=== PATIENT | female | born 1980 | race Caucasian/White ===

== ENCOUNTER 2017-02-13 15:08 | Emergency (ER) | payer BC ==
[~2017-02-13] VITALS: Ht 165.1 cm; Wt 62.9 kg
[~2017-02-13 15:08] MED LIST: CLR10 PO; FRRS300 PO; MTR600X PO; OXYC-57 PO; PRENTAB26 PO
[2017-02-13 15:11] VITALS: TEMP 36.6; Ht 165.1 cm; Wt 62.9 kg
[2017-02-13] MEDS ORDERED: BCPILLS PO (15:29)
--- NOTE | 2017-02-13 15:56 | DIAGNOSTIC IMAGING REPORT ---
CHEST ONE VIEW PORTABLE CLINICAL HISTORY: Evaluate Fever/Sepsis cough COMPARISON STUDY: No previous studies for comparison. FINDINGS: The bones soft tissues and hemidiaphragms are normal. The cardiomediastinal silhouette is normal. The lungs are clear. The pulmonary vasculature is normal. IMPRESSION: Negative chest. The above report was generated using voice recognition software. It may contain grammatical, syntax or spelling errors. Electronically signed by: Cody Urbina M.D. 02/13/2017 3:55 PM Dictated Date/Time: 02/13/2017 3:55 PM
[2017-02-13 16:08] LABS: ISTAT CREATININE 0.8 mg/dl (0.6-1.3); ISTAT HEMOGLOBIN 14.6 g/dl (12.0-16.0); ISTAT IONIZED CALCIUM 1.21 mmol/l (1.12-1.32)
[2017-02-13 16:11] VITALS: O2SAT 98
--- NOTE | 2017-02-13 17:35 | EMERGENCY ROOM VISIT NOTE ---
History Report prepared by David: Sury Johnson Under the Supervision of: Dr. Beltran Majano D.O. First contact with patient: 15:20 Chief Complaint: RESPIRATORY PROBLEMS Stated Complaint: CHEST PAIN,SOB,SAENZ Nursing Triage Summary: I had 2 episodes of sob earlier today. with the second episode I got chest tightness. I went to urgenct care and everything was ok. they told me to come here and get more testing History of Present Illness The patient is a 36 year old female who presents to the Emergency Room with complaints of intermittent chest tightness beginning 2 hours ago. The patient states that she has had 2 episodes of shortness of breath today and 2 hours ago she notes that she began having an episode of chest tightness. She reports that she walked home today about 2 miles and after the exertion, but not during, she felt some chest tightness with shortness of breath. The patient reports that the episode lasted about 1 hour and she went to urgent care before coming in to the ED today. She complains of a headache, feeling her heart beating, and pain in the right calf 1 week ago that has resolved. She denies any leg swelling and history of blood clots. The patient notes that her LNMP was last week and she is on control. Source of History: patient Onset: today Position: chest Quality: other (tightness) Timing: intermittent Associated Symptoms: + headache, + SOB Note: he complains of a feeling her heart beating, and pain in the right calf 1 week ago that has resolved. She denies any leg swelling and history of blood clots. Review of Systems See HPI for pertinent positives & negatives. A total of 10 systems reviewed and were otherwise negative. Past Medical & Surgical Medical Problems: (1) section (2) Failure to progress (3) Maternal oligohydramnios Family History No pertinent family history stated. Social History Smoking Status: Never Smoker Alcohol Use: none Marital Status: Housing Status: lives with family Occupation Status: employed Current/Historical Medications Scheduled Control Pills ( Control Pills), 1 TAB PO DAILY Loratadine (Claritin), 10 MG PO DAILY Allergies Coded Allergies: No Known Allergies (Unverified , NONE, 02/13/17) Physical Exam Vital Signs Date Time Temp Pulse Resp B/P (MAP) Pulse Ox O2 Delivery O2 Flow Rate FiO2 02/13/17 17:10 57 20 106/65 100 Room Air 02/13/17 16:11 98 Room Air 02/13/17 15:58 62 02/13/17 15:11 36.6 69 18 119/71 98 Room Air Physical Exam CONSTITUTIONAL/VITAL SIGNS: Reviewed / noted above. GENERAL: Non-toxic in appearance. INTEGUMENTARY: Warm, dry, and [place]. HEAD: Normocephalic. EYES: without scleral icterus or trauma. ENT/OROPHARYNX: clear and moist. LYMPHADENOPATHY/NECK: Is supple without lymphadenopathy or meningismus. RESPIRATORY: Lungs clear and equal. CARDIOVASCULAR: Regular rate and rhythm. GI/ABDOMEN: Soft and nontender. No organomegaly or pulsatile mass. No rebound or guarding. Normal bowel sounds. EXTREMITIES: Warm and well perfused. BACK: No CVA tenderness. NEUROLOGICAL: Intact without focal deficits. PSYCHIATRIC: normal affect. MUSCULOSKELETAL: Normally developed with good muscle tone. Medical Decision & Procedures ER Provider Diagnostic Interpretation: X ray results and stated below per my interpretation and radiology interpretation. CHEST ONE VIEW PORTABLE FINDINGS: The bones soft tissues and hemidiaphragms are normal. The cardiomediastinal silhouette is normal. The lungs are clear. The pulmonary vasculature is normal. IMPRESSION: Negative chest. The above report was generated using voice recognition software. It may contain grammatical, syntax or spelling errors. Electronically signed by: Cody Urbina M.D. 02/13/2017 3:55 PM Dictated Date/Time: 02/13/2017 3:55 PM Laboratory Results Test 02/13/17 15:54 02/13/17 15:55 Bedside D-Dimer 214 ng/mlFEU (0-450) Bedside Hemoglobin 14.6 g/dl (12.0-16.0) Bedside Hematocrit 43 % (37-47) Bedside Sodium 139 mEq/L (135-144) Bedside Potassium 3.6 mEq/L (3.3-5.0) Bedside Chloride 104 mEq/L (101-112) Bedside Total CO2 24 mEq/l (24-31) Anion Gap 16.0 mmol/L (16-25) Bedside Blood Urea Nitrogen 12 mg/dl (7-18) Bedside Creatinine 0.8 mg/dl (0.6-1.3) Bedside Glucose (other) 96 mg/dl (70-99) Bedside Ionized Calcium ([place]) 1.21 mmol/l (1.12-1.32) Laboratory results as stated above per my review. ECG Indication: chest pain Rate (beats per minute): 57 Rhythm: sinus bradycardia Findings: no acute ischemic change, no ectopy ED Course 1520: Previous medical records were reviewed. The patient was evaluated in room B9. A complete history and physical examination was performed. 1735: On reevaluation, the patient is doing well. I discussed the results and findings with the patient. She verbalized agreement of the treatment plan. The patient was discharged home. Medical Decision The differential was considered includes acute myocardial infarction, acute coronary syndrome, myocarditis, pericarditis, pericardial effusions /tamponade, esophageal perforation, thoracic aortic dissection, pulmonary embolism, pneumonia, pneumothorax, pancreatitis, shingles, acute cholecystitis, perforated abdominal viscus. This is a 36-year-old female who presents to the ED with a chief complaint of tightness in her chest. The patient states that she walked about 2 miles to her home between 12:31 PM today. After arriving at her home and discontinuing her activity, she developed some chest tightness and she is concerned about this and went to a local urgent care. She was then referred here. The patient does report being on control pills and was concerned about PE/DVT. Her symptoms lasted for about 1 hour. She now is feeling more comfortable. She denies any spinning past medical history. Denies any shortness of breath, fevers or recent illness. The patient's vital signs here are normal. Her exam was normal. Blood work is unremarkable. D-dimer is negative. Chest x-ray was negative for acute disease. She is felt to be stable for discharge. Medication Reconcilliation Current Medication List: was personally reviewed by me Blood Pressure Screening Patient's blood pressure: Normal blood pressure Blood pressure disposition: Did not require urgent referral Impression Primary Impression: Chest tightness or pressure Scribe Attestation The scribe's documentation has been prepared under my direction and personally reviewed by me in its entirety. I confirm that the note above accurately reflects all work, treatment, procedures, and medical decision making performed by me. Departure Information Dispostion Home / Self-Care Referrals Farideh Whitehead DO (PCP) Forms HOME CARE DOCUMENTATION FORM, IMPORTANT VISIT INFORMATION, WORK / SCHOOL INSTRUCTIONS Patient Instructions ED Chest Pain Atypical Unkn Cause, My [facility] Additional Instructions Follow-up with your doctor for further care and evaluation in 1-2 days. Return to the emergency department for worsening or new symptoms or any concerns. You have been examined and treated today on an emergency basis only. This is not a substitute for, or an effort to provide, complete comprehensive medical care. It is impossible to recognize and treat all injuries or illnesses in a single emergency department visit. It is therefore important that you follow up closely with your doctor. Call as soon as possible for an appointment.
[2017-02-13 18:09] VITALS: BP 125/72; PULSE 69; O2SAT 100
== END 2017-02-13 18:10 | disposition home or self-care (01) ==
LOC: C.EDB 15:09
DX: R07.89 Other chest pain (principal)

== ENCOUNTER → 2017-10-19 | Outpatient (CLI) | payer OTHER ==
[~2017-10-19] MED LIST changes: +BCPILLS PO; -FRRS300 PO; -MTR600X PO; -OXYC-57 PO; -PRENTAB26 PO
== END | disposition home or self-care (01) ==
LOC: C.PAPS 15:56
PROVIDERS: ATTEND Obstetrics & Gynecology
DX: Z12.4 Encounter for screening for malignant neoplasm of cervix (principal)